=== PATIENT | female | born 1950 | race Caucasian/White ===

== ENCOUNTER 2021-11-04 12:59 | Outpatient (CLI) | payer OTHER, MEDICARE, SELFPAY ==
[2021-11-04 21:18] LABS: Albumin* 4.2 g/dL (3.3-5.0); Chloride* 105 mmol/L (96-114)
[2021-11-04 21:19] LABS: Potassium* 4.4 mmol/L (3.6-5.1); Sodium* 140 mmol/L (135-149)
[2021-11-04 21:20] LABS: Iron* 63 ug/dL (37-170)
[2021-11-04 21:21] LABS: Bilirubin Total* 0.5 mg/dL (0.1-1.5); Carbon Dioxide* 26 mmol/L (20-32); Cholesterol* 197 mg/dL (90-199); Creatinine* 0.7 mg/dL (0.5-1.5); Estimated Glomerular Filt Rate 94 ml/min
[2021-11-04 21:22] LABS: Alanine Aminotransferase* 19 U/L (4-35); Alkaline Phosphatase* 118 U/L (40-150); Aspartate Amino Transferase* 28 U/L (12-35); Blood Urea Nitrogen* 20 mg/dL (7-30); Calcium* 9.7 mg/dL (8.4-10.6); Glucose* 103 mg/dL (60-115); HDL Cholesterol* 37 mg/dL (>=50); LDL Cholesterol Calculated 125 mg/dL (<100); Triglycerides* 176 mg/dL (40-149)
[2021-11-04 21:30] LABS: Percent Iron Saturation 14 % (20-50); Total Iron Binding Capacity 448 ug/dL (265-497)
[2021-11-04 22:11] LABS: Vitamin B12* > 1000 pg/mL (243-894)
[2021-11-06 13:10] LABS: Rheumatoid Factor < 10 IU/mL (0-14)
[2021-11-06 14:23] LABS: Anti-Nuclear Ab(ANA)IgG ELISA Detected (None Detected)
[2021-11-07 00:47] LABS: Antinuclear AntibodyHEp-2 <1:80 (<1:80)
== END 2021-11-04 13:00 | disposition home or self-care (01) ==
PROVIDERS: PCP Internal Medicine; Visit Provider Physician Assistant Medical
DX: Z00.00 Encounter for general adult medical examination without abnormal findings (principal); D64.9 Anemia, unspecified; M25.561 Pain in right knee; M25.562 Pain in left knee; I10 Essential (primary) hypertension; M81.0 Age-related osteoporosis without current pathological fracture
CPT/HCPCS: 80053; 80061; 82607; 83540; 83550; 84443; 86039; 86431

== ENCOUNTER 2022-01-08 13:13 | Outpatient (CLI) | payer OTHER, SELFPAY ==
--- NOTE | 2022-01-08 13:30 | CRLHL7_ITS ---
For Patients: As a result of the Century Cures Act, medical imaging exams and procedure reports are released immediately into your electronic medical record. You may view this report before your referring provider. If you have questions, please contact your health care provider. DXA BONE MINERAL DENSITY STUDY Reason for exam: Osteoporosis. Current height (in): 64. Weight (lb): 190. Menopause age: 52. Ethnicity: White. 1. Have you had a previous hip or vertebral fracture? No. 2. Have you had any fractures during your adult life which did not result from significant trauma (e.g., auto accident)? No. 3. Did either of your parents have a hip fracture? No. 4. Do you smoke? No. 5. Have you ever taken Glucocorticoids? No. 6. Do you have rheumatoid arthritis? No. 7. Do you have secondary osteoporosis? No. 8. Do you drink 3 or more alcoholic drinks per day? No. 9. Are you being treated for osteoporosis? No. 10. Have you ever taken any of the following medications: Actonel, Evista, Fosamax, Miacalcin, Reclast, Boniva, Forteo, HRT (i.e., estrogen/hormone therapy), Protelos, Prolia, Vitamin D, Calcium, other ??? please specify. ANSWER: Yes, vitamin D, HRT, and calcium. 11. Do you have any of the following medical conditions: Anorexia or bulimia, asthma or emphysema, end stage renal disease, hyperparathyroidism, any seizure disorders, cancer, inflammatory bowel diseases, hysterectomy, other ??? please specify. ANSWER: Yes, hypothyroidism. 12. What was your maximum height (inches)? 66. 13. Do you perform weight bearing exercise regularly? No. 14. Do you regularly consume dairy products? Yes. 15. Do you drink caffeinated beverages? Yes. If female: 16. At what age did your period start? 15. 17. Are you premenopausal? No. 18. How many full-term pregnancies have you had? 0. 19. Have you ever missed your period for more than 6 months in a row (not including or menopause)? No. TECHNIQUE: Bone mineral density study was performed using the [employer] Wi. FINDINGS: The results of the study expressed as bone mineral density (BMD) are as follows: Lumbar spine L1to L2: BMD: 0.653 g/cm2. T-score: -3.0. Z-score: -1.0 Neck Left: BMD: 0.508 g/cm2. T-score: -3.1. Z-score: -1.3 Right: BMD: 0.481 g/cm2. T-score: -3.3. Z-score: -1.6 Total Left: BMD: 0.580 g/cm2. T-score: -3.0. Z-score: -1.5 Right: BMD: 0.594 g/cm2. T-score: -2.9. Z-score: -1.4 IMPRESSION: Osteoporosis. Jovanni Reynolds M.D. Diagnostic Radiologist [email or web address] morton/Dictated by: Jovanni Reynolds MD @ 01/09/2022 8:29:00 AM (Electronically Signed)
--- NOTE | 2022-01-08 14:00 | CRLHL7_ITS ---
For Patients: As a result of the Cures Act, medical imaging exams and procedure reports are released immediately into your electronic medical record. You may view this report before your referring provider. If you have questions, please contact your health care provider. BILATERAL DIGITAL SCREENING MAMMOGRAM WITH COMPUTER-AIDED DETECTION CLINICAL HISTORY: Routine screening exam. COMPARISON: None. TECHNIQUE: Digital mammogram in CC and MLO projections including computer-aided detection (CAD). BREAST COMPOSITION: There are areas of scattered fibroglandular density. FINDINGS: RIGHT Breast: Focal nodular density upper outer quadrant 10 cm from the nipple, probable lymph node. LEFT Breast: No suspicious findings. IMPRESSION: RIGHT breast asymmetry/mass. RECOMMENDATIONS: Additional mammographic views of the RIGHT breast including 3D spot compression CC/MLO. RIGHT breast ultrasound may also be required. The [facility] will contact the patient for follow-up. BI-RADS Category 0: Incomplete: Need Additional Imaging Evaluation and/or Prior Mammograms for Comparison A lay language report of this examination will be provided to the patient. Dictated by Jovanni Reynolds MD @ 01/09/2022 10:33:55 AM jj/Dictated by: Jovanni Reynolds MD @ 01/09/2022 10:33:00 AM (Electronically Signed)
== END 2022-01-08 13:14 | disposition home or self-care (01) ==
PROVIDERS: PCP Physician Assistant Medical; Visit Provider Physician Assistant Medical
DX: Z12.31 Encounter for screening mammogram for malignant neoplasm of breast (principal); N63.10 Unspecified lump in the right breast, unspecified quadrant; M81.0 Age-related osteoporosis without current pathological fracture
CPT/HCPCS: 77067; 77080

== ENCOUNTER 2022-01-13 07:31 | Outpatient (CLI) | payer OTHER, SELFPAY ==
--- NOTE | 2022-01-13 07:45 | CRLHL7_ITS ---
For Patients: As a result of the Century Cures Act, medical imaging exams and procedure reports are released immediately into your electronic medical record. You may view this report before your referring provider. If you have questions, please contact your health care provider. DIGITAL DIAGNOSTIC MAMMOGRAM WITH COMPUTER-AIDED DETECTION AND TOMOSYNTHESIS 01/13/2022 RIGHT BREAST ULTRASOUND 01/13/2022 CLINICAL HISTORY: Possible RIGHT breast mass. COMPARISON: Mammogram 01/08/2022. TECHNIQUE: Mammography was performed using digital technique and interpreted with computer-aided detection. BREAST DENSITY: There are scattered areas of fibroglandular density. FINDINGS: Spot compression views demonstrates persistence of a mass in the RIGHT breast. Ultrasound at the 9 o???clock position, 10 cm from the nipple, demonstrates a 0.7 x 0.5 x 0.8 cm normal intramammary lymph node. This corresponds to the mammographic findings. IMPRESSION: Normal intramammary lymph node RIGHT breast 9 o???clock position, 10 cm from the nipple, corresponds to mammographic findings. No mammographic or sonographic findings for malignancy. Recommend return to yearly screening mammography. BI-RADS Category 2: Benign Briana Willis M.D. Diagnostic/Breast Radiologist [email or web address] Transcribed: 10:14 a.m. DW/Dictated by: Briana Willis MD @ 01/13/2022 9:11:00 AM (Electronically Signed)
== END 2022-01-13 07:32 | disposition home or self-care (01) ==
LOC: MAMMO 07:31
PROVIDERS: PCP Physician Assistant Medical; Visit Provider Physician Assistant Medical
DX: N63.10 Unspecified lump in the right breast, unspecified quadrant (principal); R92.8 Other abnormal and inconclusive findings on diagnostic imaging of breast
CPT/HCPCS: 76642; 77065; G0279

== ENCOUNTER 2023-02-02 14:46 | Outpatient (CLI) | payer OTHER, SELFPAY | END 2023-02-02 14:47 | disposition home or self-care (01) | PROVIDERS: PCP Physician Assistant Medical; Visit Provider Physician Assistant Medical | DX: E03.9 Hypothyroidism, unspecified (principal); I10 Essential (primary) hypertension | CPT/HCPCS: 80053; 84443 ==

== ENCOUNTER 2023-04-13 07:46 | Emergency (ER) | payer OTHER, SELFPAY ==
[2023-04-13 07:51] VITALS: BP 144/98; PULSE 67; RESP 18; TEMP 36.1; O2SAT 95; BMI 36.0
--- NOTE | 2023-04-13 08:12 | CRLHL7_ITS ---
For Patients: As a result of the Cures Act, medical imaging exams and procedure reports are released immediately into your electronic medical record. You may view this report before your referring provider. If you have questions, please contact your health care provider. INDICATION: Fall. TECHNIQUE: CT cervical spine without contrast. COMPARISON: None. FINDINGS: Vertebrae: Grade 1 degenerative anterolisthesis of C3 on C4. there are no fractures or suspicious bony lesions. Discs and facet joints: C3-C4 and C4-C5 disc degeneration, more pronounced at the former level. Left C2-C3 and C3-C4 facet osteoarthrosis. Extraspinal findings: Prevertebral soft tissues, visualized airway, and visualized lungs are unremarkable. IMPRESSION: No acute traumatic injury is identified. Cervical spondylosis described above. Please note that all CT scans at this facility use dose modulation, iterative reconstruction, and/or weight-based dosing when appropriate to reduce radiation dose to as low as reasonably achievable. Dictated by Parvez Gibson MD @ 04/13/2023 8:54:40 AM (Electronically Signed)
--- NOTE | 2023-04-13 08:12 | CRLHL7_ITS ---
For Patients: As a result of the Cures Act, medical imaging exams and procedure reports are released immediately into your electronic medical record. You may view this report before your referring provider. If you have questions, please contact your health care provider. INDICATION: Fall. TECHNIQUE: CT head without contrast. COMPARISON: 11/07/2020. FINDINGS: The mon-white differentiation is preserved. No intracranial mass, hemorrhage, or hydrocephalus. 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 Left maxillary sinus mucosal thickening. Right maxillary sinus retention cyst. Anterior nasal septal rightward deviation. Left posterior bony nasal septal spur. IMPRESSION: No acute traumatic injury. Incidental findings described above. Please note that all CT scans at this facility use dose modulation, iterative reconstruction, and/or weight-based dosing when appropriate to reduce radiation dose to as low as reasonably achievable. Dictated by Parvez Gibson MD @ 04/13/2023 8:49:53 AM (Electronically Signed)
--- NOTE | 2023-04-13 08:15 | ED_ITS ---
HPI - General Adult General Date Seen: 04/13/23 Chief complaint: Extremity Pain/Injury, Upper Stated complaint: Fell- R wrist injury Time Seen by Provider: 04/13/23 07:52 Source: patient and family Mode of arrival: ambulatory Limitations: no limitations History of Present Illness HPI narrative: Very nice 72-year-old female presents here with a family member for evaluation of a fall that just occurred within the last hour. She was coming out of her residence into the hallway, took a left. And her body went right, she fell hitting her right side of her head against the wall, and breaking her fall with her right wrist, she heard a snap of her wrist. And is painful and really limited in range of motion at this point she has never before broken wrist she denies any numbness tingling weakness, she does not remember well the incident. If at all. But does not think she lost any consciousness. She denies any pain in her neck back or shoulders. But admits she feels a little bit dizzy. She is not on any anticoagulants. No past history of head injuries has not taking anything for the injury currently. Was able to walk without problems and there is no nausea vomiting no problems with vision. No history of palpitations, preceding this, no history of syncope, she does not feel that had any chest pain, Associated symptoms: denies other symptoms Treatments prior to arrival: none Related Data Home Medications Medication Instructions Recorded Confirmed ascorbic acid (vitamin C) 500 mg 500 mg PO DAILY 11/04/21 04/13/23 capsule cholecalciferol (vitamin D3) 10 10 mcg PO QDAY 11/04/21 04/13/23 mcg (400 unit) capsule fexofenadine 60 mg tablet (Abi 60 mg PO BID 11/04/21 04/13/23 Allergy) mecobalamin (vitamin B12) 1,000 1,000 mcg sublingual QDAY 11/04/21 04/13/23 mcg disintegrating tablet,sublingual Iron 1 tab PO DAILY 02/02/23 04/13/23 Magnesium 1 tab PO DAILY 02/02/23 04/13/23 calcium 1 tab PO DAILY 02/02/23 04/13/23 Previous Rx's Medication Instructions Recorded levothyroxine 88 mcg tablet 88 mcg PO QDAY #90 tabs 03/18/23 lisinopril 20 2 tab PO QDAY #180 tabs 03/18/23 mg-hydrochlorothiazide 12.5 mg tablet Allergies Allergy/AdvReac Type Severity Reaction Status Date / Time codeine Allergy Unknown Verified 04/13/23 07:56 Sulfa drugs Allergy Mild Rash Uncoded 03/18/23 09:13 Review of Systems Status of ROS: Reports: 10 or more systems reviewed and unremarkable except as noted in History and below [facility] Medical History Hypothyroidism ?E03.9 - Hypothyroidism, unspecified (ICD-10) 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) Surgical History History of unilateral salpingectomy (1978) ?Z90.79 - Acquired absence of other genital organ(s) (ICD-10) History of gastric bypass (2006) ?Z98.84 - Bariatric surgery status (ICD-10) History of appendectomy (1978) ?Z90.49 - Acquired absence of other specified parts of digestive tract (ICD- 10) Family History Sister Asthma High blood pressure Achalasia Brother Asthma Coronary artery disease Mother Stroke Coronary artery disease Diabetes Paternal Grandmother Colon cancer, Onset Age: 80 Social History Narrative: , retired from office work, no kids, 1 own dog Resides with her adult sister ( Ashanti) Very rare drink alcohol Exercise involving walking, daily 2 x 45 min, walks with dogs Former smoker; Quit 20 ys ago. Smoking Status: Former smoker Do you use any of these nicotine containing products: None How often do you have a drink containing alcohol: never AUDIT-C Alcohol total score: 0 Non-prescribed substance use: denies use Little interest or pleasure in doing things: not at all Feeling down, depressed, or hopeless: not at all Exam Narrative: Exam Narrative: I find her resting in room 2 in no apparent distress. She is alert oriented speaking to me well, pupils are equal round reactive to light she tracks normally, she has abrasions over the right side of her forehead. Along the right side of her face and nose. TMs are normal bilaterally, other is no tenderness of her neck, in her she is able to move through range of motion of 8 cm to 20 cm, and turned 60? bilaterally. Her chest is good air entry bilaterally no wheezing crackles noted her shoulders herbal symmetrical in move well, her elbows move well bilaterally also, radial pulses normal bilaterally along with her brachial. Her right wrist is deformed, in the dinner fork type deformity. She has movement of her fingers, but isn't slightly weak rug cleaner hand strength on the right side likely due to pain. Chest is nontender, abdomen is soft and obese there is no guarding no tenderness normal bowel sounds. Heart sounds are normal with no extra sounds, such as murmurs S3-S4. Lower extremity show normal bilaterally with 1+ pitting edema strength is normal in her lower extremities bilaterally both proximal and distal. Her pulses are normal. No evidence of any abrasions other than on her head. Const: Vital Signs, click to edit/add: Vital Signs - 24 hr 04/13/23 07:51 Temperature 96.9 F L Pulse Rate [Right Pulse Oximeter] 67 Respiratory Rate 18 Blood Pressure [Le ft Upper Arm] 144/98 H Pulse Oximetry 95 Oxygen Delivery Me thod Room Air Documenting provider has reviewed patient's vital signs: yes Course Course ED Course: I discussed with the patient, that the fracture needs to be reduced over distal radius. I discussed using hematoma block along with some sedation and narcotics, I was able use a dorsal approach, with the 1% lidocaine without epinephrine, times 10 mL preservative-free. This resulted in excellent hematoma block, and she did have no pain at all, and I was able to reduce the fracture to near anatomical on the post films. Anterior posterior splint, along with orthopedic follow-up for 48-72 hours is given to her, along with direction. I discussed with her that her head CT looks like possibly an old infarct, but no acute changes, cervical spine CT looks like some degenerative changes maximal at C3-C4 and C4-C5, but no acute She would like to try just Tylenol given her falling history I think that is reasonable, we will give her a sling. Vital Signs Vital signs: Initial Vital Signs Temperature 96.9 F L 04/13/23 07:51 Temperature Source Temporal Artery Scan 04/13/23 07:51 Pulse Rate 67 04/13/23 07:51 Respiratory Rate 18 04/13/23 07:51 Blood Pressure 144/98 H 04/13/23 07:51 Blood Pressure Mean 113 H 04/13/23 07:51 Blood Pressure Position Sitting 04/13/23 07:51 Pulse Oximetry 95 04/13/23 07:51 Oxygen Delivery Method Room Air 04/13/23 07:51 Vital Signs Temperature 96.9 F L 04/13/23 07:51 Pulse Rate 67 04/13/23 07:51 Respiratory Rate 18 04/13/23 07:51 Blood Pressure 144/98 H 04/13/23 07:51 Pulse Oximetry 95 04/13/23 07:51 Oxygen Delivery Method Room Air 04/13/23 07:51 Temperature 96.9 F L 04/13/23 07:51 Pulse Rate 67 04/13/23 07:51 Respiratory Rate 18 04/13/23 07:51 Blood Pressure 144/98 H 04/13/23 07:51 Pulse Oximetry 95 04/13/23 07:51 Oxygen Delivery Method Room Air 04/13/23 07:51 Medications Administered Medications: Discontinued Medications Generic Name Dose Route Start Last Admin Trade Name Freq PRN Reason Stop Dose Admin Acetaminophen 1,000 mg 04/13/23 08:12 04/13/23 08:55 Acetaminophen 500 Mg Tablet PO 04/13/23 08:13 1,000 mg ONCE ONE Administration Sodium Chloride 1,000 mls @ 1,000 mls/hr 04/13/23 08:15 04/13/23 08:56 0.9 % Sodium Chloride 1000 Ml IV 04/13/23 09:14 1,000 mls/hr .Q1H DOUGLAS Administration Medical Decision Making [facility] Narrative Medical decision making narrative: Life-threatening differential diagnosis is considered include: Subarachnoid hemorrhage, subdural hemorrhage, epidural hemorrhage. Other differential diagnosis considered include concussion, closed head injury, or neck fracture. We will also do an x-ray of her right wrist I suspect that she has a distal radial fracture, like more like the colles Imaging Data Distal radial x-ray: Attestation: I have reviewed the pertinent imaging results. My impression: This really actually shows the distal radial/Colies type fracture there is also a fracture noted of the ulnar styloid. Post films show near anatomic alignment, Head CT shows no acute changes. Cervical spine CT shows degenerative changes, with slight spondylolisthesis C3 and C4. Discharge Plan Discharge Clinical Impression: Head injury, Fall, Closed fracture distal radius and ulna Patient Disposition: Home w/ Parent or Adult Condition: Improved Instructions: Arm Fracture in Adults (ED), Wrist Fracture in Adults (ED), Fall Prevention for Older Adults (ED), Head Injury (DC), Fall Prevention (ED) Additional Instructions: Follow up appointment is scheduled at the [facility] on 04/16 with a 9:50am appointment time. Please arrive at 9:30am to check in and complete paperwork. If you have any questions or need to reschedule, please call [phone]. [facility] [address] [place] [address] Patient is to use sling as much as she can during the 1st 24-48 hours, leave the splint on. Follow up with Orthopedics as above. Like I said this may result in surgery, we will need to see, although the fracture reduction was excellent. Tylenol every 8 hours for the discomfort, elevation is also suggested, if he can not move your fingers or he have increasing marked pain, need to come back and be seen, but I think he will do well. Activity Level: Light activity Prescriptions: No Action lisinopril-hydrochlorothiazide 20-12.5 mg tablet 2 tab PO QDAY Qty: 180 3RF Rx Instructions: 2 tablets daily for blood pressure levothyroxine 88 mcg tablet 88 mcg PO QDAY Qty: 90 3RF Rx Instructions: for thyroid cholecalciferol (vitamin D3) 10 mcg (400 unit) capsule 10 mcg PO QDAY mecobalamin (vitamin B12) 1,000 mcg tablet,disintegrating 1,000 mcg sublingual QDAY Rx Instructions: place tablet under tongue and allow to dissolve for at least30 secs before swallowing ascorbic acid (vitamin C) 500 mg capsule 500 mg PO DAILY fexofenadine [Abi Allergy] 60 mg tablet 60 mg PO BID calcium 1 tab PO DAILY Patient Comments: 600 mg Iron 1 tab PO DAILY Patient Comments: Patient unsure of dose. Magnesium 1 tab PO DAILY Patient Comments: Unsure of dose. Follow Up/Referrals: Gris Doshi PA-C [Primary Care Provider] - Stand Alone Forms: [employer] Info Instructions
--- NOTE | 2023-04-13 08:27 | CRLHL7_ITS ---
For Patients: As a result of the Cures Act, medical imaging exams and procedure reports are released immediately into your electronic medical record. You may view this report before your referring provider. If you have questions, please contact your health care provider. INDICATION: Pain with trauma. TECHNIQUE: Three views. COMPARISON: None. FINDINGS: Nondisplaced comminuted dorsally angulated distal right radial metaphyseal fracture without intra-articular extension. Nondisplaced ulnar styloid process fracture. IMPRESSION: Fractures of the distal right radius and ulna described above. Dictated by Parvez Gibson MD @ 04/13/2023 9:15:23 AM (Electronically Signed)
[2023-04-13] MEDS: ACETAMINOPHEN 500 MG TABLET 1000 MG PO (08:55)
[2023-04-13] MEDS: 0.9 % SODIUM CHLORIDE 1000 ml 1,000 ML IV (08:56)
--- NOTE | 2023-04-13 09:49 | ED.NURSE ---
removed the 4 rings on the right hand and given to sister.
--- NOTE | 2023-04-13 10:14 | CRLHL7_ITS ---
For Patients: As a result of the Cures Act, medical imaging exams and procedure reports are released immediately into your electronic medical record. You may view this report before your referring provider. If you have questions, please contact your health care provider. Indication: S/p right wrist reduction. Technique: Two views Comparison: Right wrist 04/13/2023 Findings/Impression: Distal radial transverse metaphyseal fracture redemonstrated with dorsal displacement of 2 millimeters and minimal dorsal angulation of the distal fracture fragment. Ulnar styloid avulsion redemonstrated. Prominent adjacent soft tissue swelling. Dictated by Paul Astorga MD @ 04/13/2023 10:37:35 AM (Electronically Signed)
[2023-04-13 10:15] VITALS: BP 176/99; PULSE 70; RESP 18; O2SAT 92
--- NOTE | 2023-04-13 10:30 | ED.NURSE ---
Dr. Marrero reduced the right wrist and given block. Splint placed on the right wrist and then a post reduction film done.
[2023-04-13] MEDS: LIDOCAINE 1 % PF 30 ML INJECTION (11:00)
== END 2023-04-13 11:06 | disposition home or self-care (01) ==
PROVIDERS: Emergency Provider Family Medicine; PCP Physician Assistant Medical
DX: S09.90XA Unspecified injury of head, initial encounter (principal); S52.501A Unspecified fracture of the lower end of right radius, initial encounter for closed fracture; S52.614A Nondisplaced fracture of right ulna styloid process, initial encounter for closed fracture; W01.0XXA Fall on same level from slipping, tripping and stumbling without subsequent striking against object, initial encounter
CPT/HCPCS: 25605; 70450; 72125; 73100; 73110; 99284; A9270; J2001; J7030

== ENCOUNTER 2023-10-07 09:15 | Outpatient (RCR) | payer OTHER, SELFPAY ==
--- NOTE | 2023-07-15 09:54 | OT.OPOE ---
OT Outpatient Ortho Eval OT Outpatient Ortho Eval* Start: 07/15/23 08:31 Freq: Status: Active Protocol: Document 07/15/23 08:32 STEPHEN (Rec: 07/15/23 09:42 STEPHEN [id number]) E-signed By Kristin Peters, OTR/L, CLT OT OP Ortho Eval Details Complexity Complexity Low Insurance Information Insurance Information Medicare B,[employer] Outpatient History/Precautions Current Condition/Medical Diagnosis Referring Provider Zohaib Lowe PA-C Treatment Diagnosis Stiffness in the R hand, M25. 641 & Localized Edema R60.0 Date of Onset 04/13/23 Precautions Lifting Restrictions Other Precautions Short-arm cast removed without complications on 07/03/23. Right wrist brace applied. Tubigrip provided. She will wear this brace during sleep for the next 2 weeks, and wear with all activities over the next 4-6 weeks. May come out of the brace for gentle wrist motion (which is encouraged), eating, bathing, sedentary activities. Let pain be her guide. Occupational therapy also provided to work on wrist joint motion. No heavy push, pull, or grasp. Other Conditions Medical dx: S52.509A - Unspecified fracture of the lower end of unspecified radius, initial encounter for closed fracture, S52.609A - Unspecified fracture of lower end of unspecified ulna, initial encounter for closed fracture Medical/Functional History Medical History Reviewed Yes Social History Employment Status Retired Current Occupation Reading, watching game shows on TV,taking care of her dogs/ cats, crocheting Oriented Mental Status No Concerns Ortho Subjective Subjective Subjective [place] 10 [place] (dogs/ cats) and sister (who works from home). Patient has been able to drive with her R wrist brace on. Injury occurred from a mechanical fall at home (using the bathroom in the middle of the night). Of note , this is the patient's second fall this year (both of which were walking to the bathroom in the middle of the night. Pain Assessment Pain Present Pain Present Pain Reported Location Right Wrist Description Tightness,Throbbing Intensity 3 Goniometric Comments Goniometric Comments Goniometric Comments R UE Wrist Flexion 19 degrees Wrist Extension: 15 degrees Wrist radial deviation: 20 degrees Wrist ulnar deviation: 22 degrees Full pronation & 40 degrees of supination on the R hand Upper Extremity Special Tests Upper Extremity Special Tests Comments Comments X-ray: copied from chart Relatively stable appearing right distal radius transverse metaphyseal fracture dorsal angulation, loss of radial inclination, and relatively neutral ulnar variance. PA, Lateral and Oblique views of the right wrist were obtained on 07/03/[address] [facility], were ordered by a different physician, were reviewed by me today, and show relatively stable appearing distal radius transverse metaphyseal fracture with persistent dorsal angulation approximately 8-10 degrees and relatively ulnar neutral variance but radial inclination 3?. Ulnar styloid todd also noted. These findings are relatively unchanged for images dated 05/07. OT Problems Problems Problems Decreased Strength,Decreased Range of Motion Other Problems Writing,Opening Containers, Dressing,Computer,Fasteners, Sleeping Patient Potential Excellent Assessment Assessment Assessment This is a very pleasant, R hand dominant 72-year-old female who had a mechanical fall at home on 04/13/2023. She was assessed after this injury at [facility] ER, where x-rays revealed fracture of the right wrist. She underwent hematoma block aided wrist reduction and splinting. Patient had further f/u apts with ortho since the Apr. She reports falling 05/02/2023 in her bathroom, hitting her right-side head against a corner. Did not lose consciousness, does not feel she has a concussion. Did not catch herself with the right upper extremity. Her sister was there during incident and watched her overnight. At Ortho apt on 05/08/23: Splint removed without complications. I do appreciate increased dorsal angulation on imaging today. I believe this dorsal angulation is still acceptable , especially as patient desires to continue remaining the non operative route. Explained this increase in dorsal angulation which she understands. Explained how this will decrease maximal wrist flexion, but should still be functional for everyday activities. She agrees to continue the non- operative route. Right short- arm, waterproof cast applied without complications. Post cast instructions provided. We placed a dorsal volar mold to help support the wrist fracture. She tolerated this mold well. Encouraged digital motion, elbow motion, no lifting beyond coffee cup in weight right upper extremity. Then on 05/08/23 patient had another Ortho f/u apt with PA, X-rays reviewed from chart Three views right wrist ordered and preliminarily reviewed today. Images compared to those from 2023. Today's images show the distal radius metaphyseal transverse fracture that appears overall stable without interval change. Neutral radial height and maintained dorsal angulation at 14?. Small minimally displaced ulnar styloid fracture also unchanged. Very minimal callus noted surrounding the fracture. Mildly improved soft tissue swelling. PLAN in the provider's chart stated The fracture is stable, but still not showing evidence of good healing. We know this will take numerous weeks to heal. Thus, I would advocate for return to a short-arm cast for continued immobilization and protection while the fracture heals. Original cast removed without complications . A new non waterproof short- arm cast applied to the right wrist without complications. Proper mold through the palm. She has good motion of her digits post casting. Encouraged frequent digit motion as well as elbow and shoulder. No lifting, grasping, or pulling with the right hand. Will see her back in 1 month for cast removal, repeat three views right wrist , and clinical exam. Potentially transition to a wrist brace and initiation of OT at that time. Then patient returned to the Ortho clinic again on the 02 of July for X-rays and provider f/u apt with a plan for: Short-arm cast removed without complications. The fracture is stable and healing. She has minimal pain. We appreciate the radial deviation of the wrist, which is due to loss of radial height. Right wrist brace applied. Tubigrip provided. She will wear this brace during sleep for the next 2 weeks, and wear with all activities over the next 4-6 weeks. May come out of the brace for gentle wrist motion (which is encouraged), eating, bathing, sedentary activities . Let pain be her guide. Occupational therapy also provided to work on wrist joint motion. No heavy push, pull, or grasp. Plan to see her back in 4-6 weeks for clinical recheck and repeat three views right wrist. Patient had slight redness at the R wrist, ulnar styloid that therapist padded with blue foam in the wrist brace. Patient was educated on her HEP and encouraged to apply a healthy amount of lotion/ moisturizer to the skin for conditioning. Occupational Therapy Treatment Plan - OP Potential Rehabilitation Potential Excellent Barriers Barriers to goal attainment None noted, patient is very motivated and cooperative Set Goals Goals Set with Patient Yes Goals Goals 1. Patient will verbalize 3 activity modifications to decrease abusive/overloading of the muscles, joints & tendons. 2. 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 3. Through activity participation in skilled therapy sessions, and consistency in performing a customized HEP, patient will improve capacity of tendons and muscles to manage load in order to have less pain with ADLs, work, leisure activities and IADLs. 4. Patient will improve active ROM of the R wrist in order to care for her 10 dogs/cats. Wrist Flexion 19 degrees; Wrist Extension: 15 degrees; Wrist radial deviation: 20 degrees; Wrist ulnar deviation : 22 degrees Full pronation & 40 degrees of supination on the R hand 5. Patient will resume all ADLs with her R dominant hand w/o pain or discomfort. Target Date 8 weeks Treatment Plan Treatment Plan Evaluation,Edema Control,Joint Mobilization,Manual Therapy, Ultrasound,Therapeutic Exercise,Self Care/Home Management,Education Expected Frequency 1-2x Week Expected Duration 8-10 Weeks Home Program Home Program Home Program Initiated Home Program Specifics Access Code: [email or web address] URL: [email or web address] Date: 07/15/2023 Prepared by: Kristin Peters Exercises - Wrist AROM Flexion Extension - 1 x daily - 7 x weekly - 3 sets - 10 reps - Thumb Opposition - 1 x daily - 7 x weekly - 3 sets - 10 reps - Finger Spreading - 1 x daily - 7 x weekly - 3 sets - 10 reps - Wrist Tendon Gliding - 1 x daily - 7 x weekly - 3 sets - 10 reps - Wrist AROM Radial Ulnar Deviation - 1 x daily - 7 x weekly - 3 sets - 10 reps - Seated Single Arm Forearm Supination Pronation - 1 x daily - 7 x weekly - 3 sets - 10 reps - Forearm AAROM Supination and Pronation with Ball - 1 x daily - 7 x weekly - 3 sets - 10 reps Recertification Information Recertification Information Initial Certification Date 07/15/23 Recertification Due Date 10/13/23 Click To Default 'Per treatment plan' Per treatment plan Continued Plan of Care and Interventions Per treatment plan Provider Signature Shows Agreement With POC & Medical Necessity Physician Comment/Change Comment or Changes Physician NPI Number #
== END 2023-10-07 10:29 | disposition home or self-care (01) ==
PROVIDERS: PCP Physician Assistant Medical; Visit Provider Physician Assistant Surgical
DX: S52.501A Unspecified fracture of the lower end of right radius, initial encounter for closed fracture (principal); S52.601A Unspecified fracture of lower end of right ulna, initial encounter for closed fracture; Z51.89 Encounter for other specified aftercare
CPT/HCPCS: 97110; 97165; X5282

== ENCOUNTER 2024-01-25 09:53 | Outpatient (CLI) | payer OTHER, SELFPAY | END 2024-01-25 09:54 | disposition home or self-care (01) | PROVIDERS: PCP Physician Assistant Medical; Visit Provider Physician Assistant Medical | DX: Z00.00 Encounter for general adult medical examination without abnormal findings (principal); E03.9 Hypothyroidism, unspecified; I10 Essential (primary) hypertension; M81.0 Age-related osteoporosis without current pathological fracture; Z13.6 Encounter for screening for cardiovascular disorders | CPT/HCPCS: 80053; 80061; 84439; 84443 ==

== ENCOUNTER 2024-04-07 12:38 | Outpatient (CLI) | payer OTHER, SELFPAY | END 2024-04-07 12:39 | disposition home or self-care (01) | LOC: NFLDREF 04-11 03:36 | PROVIDERS: PCP Physician Assistant Medical; Referring Provider Physician Assistant Medical; Visit Provider Physician Assistant Medical | DX: E03.9 Hypothyroidism, unspecified (principal) | CPT/HCPCS: 84443 ==